=== PATIENT | female | born 1980 | race Caucasian/White ===

== ENCOUNTER 2018-06-03 08:24 | Day surgery (SDC) | payer BC, SELFPAY ==
[2018-06-03 08:51] LABS: Internal QC Validated? YES +Cl - CLEAR BKGD; Pregnancy, Urine Negative Negative
[2018-06-03 09:04] VITALS: BP 120/74; PULSE 78; RESP 18; TEMP 37; O2SAT 97; BMI 27.3
[2018-06-03 09:04] LABS: Hematocrit 42.7 % (37-47); Hemoglobin 14.2 g/dl (12.0-15.0); Mean Corp Hgb Conc 33.3 g/gl (32-36); Mean Corpuscular Hgb 30.2 pg (27.0-32.0); Mean Corpuscular Volume 90.9 fL (81-99); Mean Platelet Vol. 11.1 fl (6.2-12.0); Platelet Count 220 K/mm3 (150-450); RBC Distribution Width CV 12.9 % (11.6-14.6); RBC Distribution Width SD 42.6 fl (35.1-43.9); White Blood Count 11.8 K/mm3 (4.4-11.0)
[2018-06-03 09:09] LABS: Scan Indicated on CBC? Y/N NO
[2018-06-03] MEDS: Gabapentin 600 MG Tablet PO (09:15)
[2018-06-03] MEDS: Celecoxib 200 MG Capsule 400 MG PO (09:15)
[2018-06-03] MEDS: Phenazopyridine 95 MG Tablet 190 MG PO (09:15)
[2018-06-03] MEDS: Ondansetron 8 MG Tablet 16 MG PO (09:15)
[2018-06-03] MEDS: Acetaminophen 500 MG Tablet 1000 MG PO (09:15)
--- NOTE | 2018-06-03 10:55 | HYST_PTH ---
PATIENT: ODIN SOW LOC: [facility] [place] U#:[id number] AGE/SX: 38/F ROOM: RE06/03/[address]: Dr. Ai Rocha MD : 1980 BED: DIS: 06/03/2018 SPEC #: [id number] RECD: 06/03/18 12:47 STATUS: HARINDER LOKESH #: [id number] MESFIN: 06/03/18 10:[address]: Ai Rocha DEPT: SURGICAL PATHOLOGY RECD BY: Bal Zuñiga ENTERED: 06/03/18 14:55 SP TYPE: HYSTERECT OTHR DR: No Primary Care Phys Tissues: Uterus, NOS Procedures: Surgery Specimen Level V HEADER OPERATION: Hysterectomy, laparoscopic assisted vaginal, right salpingectomy PRE-OP DIAGNOSIS: Abnormal uterine bleeding TISSUE SUBMITTED: Uterus, right fallopian tube MICROSCOPIC DIAGNOSIS Uterus and right fallopian tube, vaginal hysterectomy and right salpingectomy: Cervix ? chronic cystic cervicitis, squamous metaplasia and focal hyperkeratosis. Endometrium ? secretory endometrium. Myometrium ? superficial adenomyosis. Right fallopian tube - no pathologic diagnosis. SJ:ry 06/04/18 MICROSCOPIC DESCRIPTION Slides are reviewed. GROSS DESCRIPTION Received in fixative is one container labeled with the patient's name and designated uterus, right fallopian tube. The specimen consists of a hysterectomy specimen consisting of uterus with cervix and detached fallopian tube identified as right fallopian tube. The uterus with cervix weighs 121 gm and measures 9.5 x 7 x 5 cm. The serosal surface is beltran, glistening. The ectocervical mucosa is focally eroded. The external os is oval and patulous in contour. The endocervical canal measures 3 cm in length and the endocervical mucosa is beltran, glistening and unremarkable. Sections of the cervix reveal a few cysts filled with mucoid material. The triangular endometrial cavity measures 5 cm in length and up to 3 cm in width. At the level of internal os, a small cyst is noted filled with chocolate-brown material. The endometrium is belrtan, glistening without any mass lesion and measures up to 0.2 cm in thickness. Sections of the uterine wall do not reveal any mass lesion and it measures up to 2.5 cm in thickness. The detached fallopian tube measures 2.5 cm in length and up to 0.5 cm in diameter. The fimbrial end is identified. Sections reveal unremarkable cut surfaces. Tower Cleaner sections are submitted in eight cassettes as follows: 1 - anterior cervix, 2 - posterior cervix, 3 & 4 - anterior uterine wall, 5 & 6 - posterior uterine wall, 7 ? the cystic area at the internal os, 8 ? right fallopian tube, entirely submitted. / ROGELIO:ry 06/03/18 TC:5 CPT: 95288
[2018-06-03] MEDS: Bupivacaine Mpf 0.5% 30 ML VIAL (11:08)
--- NOTE | 2018-06-03 12:15 | OP.PCM_ITS ---
Report of Operation Date of Procedure: 06/03/18 Pre-Operative Diagnosis: pelvic pain, dysmenorrhea, adenomyosis Post-Operative Diagnosis: same Surgery/Procedure Performed:: LAVH, right salpingectomy Description of Surgical Findings:: left tube and ovary surgically absent, normal cervix and vagina, boggy uterus, normal right tube and ovary, normal peritoneal cavity, normal liver, normal bladder hydraulic plumber helper: Makayla Montano Type of Anesthesia:: General Anesthesiologist: Anne Chou Special Medications: none Specimen's removed: uterus, right tube Drains: bowie Estimated Blood Loss (mL): 75cc Fluids Replaced: 1400ccLR Description of Procedure: The patient was taken to the operating room where she was prepped and draped in the dorsal lithotomy position. Her arms were tucked to the side and padded and her legs were placed in the yellowfin stirrups. Care was taken to ensure that she was placed in a neurologically safe and neutral position. A weighted speculum was placed in the vagina and the anterior lip of the cervix was grasped with a single-tooth tenaculum. The cervix sounded to 9 centimeters. The Yareli uterine manipulator was placed and the balloon inflated. A Bowie catheter was placed to straight drain. Attention was turned to the abdominal portion of the case. Before skin incisions were made they were infiltrated with 0.5% Marcaine solution for local anesthetic. A 5 mm intraumbilical incision was made and while tenting the anterior abdominal wall up with towel clamps a 5 mm blade less trocar and sleeve were advanced directly into the peritoneal cavity. Peritoneal placement was confirmed with the laparoscope the pneumoperitoneum was created, and the underlying abdominal contents were intact. The patient was placed in Trendelenburg and the above findings were noted. Right and left lateral 5 mm trochars were placed under direct visualization without difficulty. The antimesenteric portion of the tube was clamped sealed and transected serially on the right side was with the LigaSure device. The round ligaments were clamped sealed and transected and a window was made in the peritoneum. The utero-ovarian ligament on the right side was clamped sealed and transected with the LigaSure device and the pedicles were hemostatic. The left tube and ovary were surgically absent. The bladder flap was dissected down with the LigaSure device and blunt dissection and the uterine arteries were then skeletonized. The uterine arteries were clamped sealed and transected on both sides with the LigaSure device. Then along the cardinal ligament uterine arteries adjacent to the cervix were clamped sealed and transected with the LigaSure device to move them away from the vaginal cuff angle. At this point the pedicles were all examined and found to be hemostatic. The bladder flap was rechecked and found to be adequately down. At this point the pedicles were hemostatic from above and attention was turned to the vaginal portion of the case again. 1% Xylocaine with dilute epinephrine solution was used to infiltrate the vaginal epithelium anteriorly from 3 to 9:00 across the cervix. An incision was made with the scalpel from 3 to 9:00 across the anterior vaginal epithelium. The vaginal epithelium was dissected back with blunt and sharp dissection in the anterior colpotomy incision made with the Metzenbaum scissors. Intraperitoneal entry was confirmed and a right angle tract retractor was placed. The vaginal epithelium along the cervix at 3 and 9: 00 was clamped, transected and suture ligated. A second pedicle containing the anterior visceral peritoneum of the uterus was secured with Scott clamp, transected and suture ligated. Hemostasis was noted. The uterus was then brought out through the anterior colpotomy incision. The uterosacral ligaments and posterior vaginal cuff were clamped across with curved Scott clamps that met in the midline. The cervix and uterus were amputated from the vagina. The pedicles were oversewn with an 0 Vicryl suture and the sites were hemostatic. The vaginal cuff angles were secured with 0 Vicryl sutures. The remainder the vagina was then closed horizontally with interrupted 0 Vicryl sutures. The cuff was hemostatic vaginally. The Bowie catheter was removed and a cystoscopy was performed. The bladder appeared normal and was intact. Both ureteral orifices were noted and both ureteral jets were seen. The cystoscope was removed and the Bowie catheter was placed back to straight drain. A sponge stick was placed in the vagina to help place traction against the vaginal cuff and the pneumoperitoneum was re-created. The pedicles were all reexamined and found to be hemostatic. The right ovary appeared normal. The right and left lateral ports were taken out and the sites were hemostatic. The pneumoperitoneum was released and even under low pressure there was no bleeding of any of the pedicles are vaginal cuff. The umbilical port was removed. The umbilical skin incisions were closed with Monocryl suture and skin glue by Dr. Wolf. The vaginal instruments were removed by me and a vaginal sweep was completed by me. The surgery was performed by me with assistance other than the portions dictated as above. There were no qualified residents available for this procedure. All sponge lap and needle counts were correct and the patient was transferred to the recovery room in stable condition. Grafts/Implants Used: none - Complications none - Admit VTE Documentation VTE Present on Admission: No VTE Mechan Device Prophylaxis: SCD's VTE Pharm Prophylaxis ordered?: No Reason prophylaxis not ordered:: Procedure Not Indicated
--- NOTE | 2018-06-03 12:20 | PCM.DC.VHY ---
Discharge Diet: No Restrictions Discharge Activity: Return to Normal Activity, May Not Drive - while taking narcotic pain medications., May Shower May resume sexual activity in: 6-8 weeks Call your doctor if your incision/area has: Continuous Slow Oozing, Sudden Increased Bleeding, Increased Pain/ Swelling, Increased Redness, Foul Smelling Discharge Call your doctor if you observe: Fever of 101 or Higher, Inability to urinate, Inability to have a bowel movement, Using more than one pad per hour Allergies/Adverse Reactions: Allergies No Known Allergies Allergy (Verified 05/27/18 08:51) Medications to take at Discharge Acetaminophen/Diphenhydramine [Tylenol Pm Ex-Strength Caplet] 1 each PO QHS PRN PRN 06/03/18 Aspirin/Acetaminophen/Caffeine [Excedrin Migraine Caplet] 1 each PO PRN PRN 06/03/18 Primary Care Physician: Care Physician,No Primary [Primary Care Provider] - Test Results: Test results from this visit will be discussed in further detail at your follow-up appointment, if applicable. Please Follow Up With: Ai Rocha MD - [phone] When: 1-2 and 6 weeks or as needed
--- NOTE | 2018-06-03 12:23 | PCM.DC.VHY ---
Discharge Diet: No Restrictions Discharge Activity: Return to Normal Activity, May Not Drive - while taking narcotic pain medications., May Shower, May Take a Tub Bath - in 4-6 weeks May shower in (days): 1 May resume sexual activity in: 6-8 weeks Call your doctor if your incision/area has: Continuous Slow Oozing, Sudden Increased Bleeding, Increased Pain/ Swelling, Increased Redness, Foul Smelling Discharge Call your doctor if you observe: Fever of 101 or Higher, Inability to urinate, Inability to have a bowel movement, Using more than one pad per hour Cleanse incision/area with: Soap & Water, - - your incisions have skin glue, it can get wet Allergies/Adverse Reactions: Allergies No Known Allergies Allergy (Verified 05/27/18 08:51) Medications to take at Discharge Acetaminophen/Diphenhydramine [Tylenol Pm Ex-Strength Caplet] 1 each PO QHS PRN PRN 06/03/18 Aspirin/Acetaminophen/Caffeine [Excedrin Migraine Caplet] 1 each PO PRN PRN 06/03/18 Primary Care Physician: Care Physician,No Primary [Primary Care Provider] - Test Results: Test results from this visit will be discussed in further detail at your follow-up appointment, if applicable. Please Follow Up With: Ai Rocha MD - [phone] When: 1-2 and 6 weeks or as needed
[2018-06-03 12:28] VITALS: BP 114/69; BP 120/74; PULSE 93; RESP 18; TEMP 36.4; O2SAT 94
[2018-06-03 12:45] VITALS: BP 106/63; BP 120/74; PULSE 67; RESP 18; O2SAT 97
[2018-06-03 13:00] VITALS: BP 102/56; BP 120/74; PULSE 72; RESP 18; TEMP 36.2; O2SAT 96
[2018-06-03 15:16] LABS: Hematocrit 41.1 % (37-47); Hemoglobin 13.6 g/dl (12.0-15.0); Mean Corp Hgb Conc 33.1 g/gl (32-36); Mean Corpuscular Hgb 30.2 pg (27.0-32.0); Mean Corpuscular Volume 91.1 fL (81-99); Mean Platelet Vol. 11.2 fl (6.2-12.0); Platelet Count 177 K/mm3 (150-450); RBC Distribution Width CV 12.9 % (11.6-14.6); Red Blood Count 4.51 M/mm3 (4.2-5.4); White Blood Count 18.3 K/mm3 (4.4-11.0)
[2018-06-03 15:17] LABS: Scan Indicated on CBC? Y/N NO
[2018-06-03] MEDS: Lactated Ringers 1,000 ML 100 ML IV (15:37)
--- NOTE | 2018-06-03 15:43 | PCM.PN.OB ---
Subjective: pain well controlled, no nN/V. Waiting to void. WOuld like to be d/marily home. - Physical Exam General: Alert, Cooperative, No apparent distress Abdomen: Soft, Non-Distended, Tender - appropriately, - - incicisions clean, dry and intact Vital Signs Temp Pulse Resp BP Pulse Ox 97.1 F L 72 18 102/56 L 96 06/03/18 13:00 06/03/18 13:00 06/03/18 13:00 06/03/18 13:00 06/03/18 13:00 Oxygen Delivery Method Room Air Weight: 84 kg Body Mass Index (BMI) 27.3 Intake and Output for Last 24 Hours 06/01/18 06/02/18 06/03/18 23:59 23:59 23:59 Intake Total 1800 / 1800 Output Total 530 / 530 Balance 1270 / 1270 Laboratory Tests Past 24 Hrs 06/03/18 06/03/18 06/03/18 08:40 08:54 08:54 WBC 11.8 H RBC 4.70 Hgb 14.2 Hct 42.7 MCV 90.9 MCH 30.2 MCHC 33.3 RDW 12.9 RDW Differential 42.6 Plt Count 220 MPV 11.1 Urine Test Negative Blood Type O POSITIVE Antibody Screen NEGATIVE 06/03/18 15:08 WBC 18.3 H RBC 4.51 Hgb 13.6 Hct 41.1 MCV 91.1 MCH 30.2 MCHC 33.1 RDW 12.9 RDW Differential 43.0 Plt Count 177 MPV 11.2 Urine Test Blood Type Antibody Screen Medical Necessity - Tobacco Use Smoking Status: Current every day smoker Assessment/Plan POD#0 Doing well ready for d/c if can void has home rxs
[2018-06-03 16:47] VITALS: BP 112/64; BP 120/74; PULSE 72; RESP 18; TEMP 36.3; O2SAT 97
== END 2018-06-03 16:57 | disposition home or self-care (01) ==
LOC: SDC 08:30 → AC 08:32
PROVIDERS: Visit Provider Obstetrics & Gynecology
PROC: 0UT9FZZ Resection of Uterus, Via Natural or Artificial Opening With Percutaneous Endoscopic Assistance (ICD-10-PCS; CPT 58552; principal; 2018-06-03 10:30)
DX: N80.0 Endometriosis of uterus (principal); N88.0 Leukoplakia of cervix uteri; N72 Inflammatory disease of cervix uteri; F17.200 Nicotine dependence, unspecified, uncomplicated
CPT/HCPCS: 58552; 81025; 85027; 86850; 86900; 88307; J7120; J2405

== ENCOUNTER → 2021-01-22 14:02 | Outpatient (CLI) | payer BC, SELFPAY ==
[2021-01-22 15:13] LABS: Absolute Lymphocyte Count 3.89 X10^3/uL (0.83-4.51); Basophil# 0.07 X10^3/uL; Basophil% 0.6 % (0-1); Eosinophils% 4.4 % (0-5); Hematocrit 44.1 % (37-47); Hemoglobin 14.3 g/dL (12.0-15.0); Lymphocyte # 3.89 X10^3/ul (4.0); Lymphocyte % 34.5 % (19-41); Mean Corp Hgb Conc 32.4 g/dL (32-36); Mean Corpuscular Hgb 29.9 pg (27.0-32.0); Mean Corpuscular Volume 92.1 fL (81-99); Mean Platelet Vol. 11.7 fl (6.2-12.0); Monocyte# 0.77 X10^3/uL; Monocyte% 6.8 % (0-10); NRBC Flagged by Analyzer 0 % (0-5); Neutrophil % 53.4 % (47-70); Platelet Count 263 K/mm3 (150-450); RBC Distribution Width CV 12.3 % (11.6-14.6); RBC Distribution Width SD 41.8 fl (35.1-43.9); Red Blood Count 4.79 M/mm3 (4.2-5.4); White Blood Count 11.3 K/mm3 (4.4-11.0)
[2021-01-22 15:38] LABS: ALB/GLOB Ratio 1.2 RATIO (0.9-2.4); AST(SGOT) 16 U/L (15-37); Alanine Aminotransfer ALT/SGPT 27 U/L (13-56); Alkaline Phosphatase 104 U/L (45-117); Anion Gap 5 (5-15); BUN 9 mg/dL (7-18); BUN/Creat Ratio 11.1 RATIO (10-20); CRP < 2.90 mg/L (0.0-3.0); Calcium,Total 9.1 mg/dL (8.5-10.1); Chloride 106 mmol/L (98-107); Creatinine, Serum 0.81 mg/dL (0.55-1.02); EST Glomerular Filtration Rate 82 mL/min (>60); Est Glom Filt Rate - Afr Amer 99 mL/min (>60); Globulin 3.2 g/dL (2.2-4.2); Glucose 86 mg/dL (74-106); Potassium 3.8 mmol/L (3.5-5.1); Protein, Total 7.2 g/dL (6.4-8.2); Rheumatoid Factor < 10.0 IU/mL (<15); Sodium Level 140 mmol/L (136-145)
[2021-01-22 15:43] LABS: Erythrocyte Sedimentation Rate 7 mm/hr (0-30)
[2021-01-22 16:10] LABS: Hepatitis B Surface Antibody Reactive; Hepatitis B Surface Antigen Non-Reactive (Nonreactive); Hepatitis C Antibody Non-Reactive (Nonreactive)
[2021-01-25 05:12] LABS: CCP IgG Antibodies 3 units (0-19)
[2021-01-25 05:18] LABS: ANTINUCLEAR ANTIBODIES DIRECT Positive (Negative)
== END ==
PROVIDERS: PCP Family Medicine; Referring Provider Internal Medicine Rheumatology; Visit Provider Internal Medicine Rheumatology
DX: M06.4 Inflammatory polyarthropathy (principal); G43.909 Migraine, unspecified, not intractable, without status migrainosus; M79.7 Fibromyalgia
CPT/HCPCS: 36415; 80053; 85025; 85652; 86038; 86140; 86200; 86431; 86706; 86803; 87340

== ENCOUNTER → 2021-02-06 10:00 | Outpatient (CLI) | payer BC, SELFPAY ==
[2021-02-06 11:13] LABS: EXAGEN MAILED SPECIMEN
[2021-02-06 12:45] LABS: Color, Urine Yellow (Yellow); Glucose, Dipstick Normal (Normal); Ketone-Dipstick Negative (Negative); Leukocyte Esterase-Dipstick Negative /ul (Negative); Nitrite-Dipstick Negative (Negative); Occult Blood-Urine 25 /ul (Negative); Protein-Dipstick Negative (Negative); Urine Bilirubin Dipstick Negative (Negative); Urine Clarity Clear (Clear); Urine Urobilinogen Normal (Normal)
[2021-02-06 13:01] LABS: Protein, Urine (Random) 9.1 mg/dL (<11.9); Protein:Creat Ratio 119 mg/g CRE (0-200)
== END ==
PROVIDERS: PCP Family Medicine; Referring Provider Internal Medicine Rheumatology; Visit Provider Internal Medicine Rheumatology
DX: M06.4 Inflammatory polyarthropathy (principal); M79.7 Fibromyalgia; R76.8 Other specified abnormal immunological findings in serum; G43.909 Migraine, unspecified, not intractable, without status migrainosus
CPT/HCPCS: 81002; 82570; 84156

== ENCOUNTER → 2023-04-20 | Outpatient (CLI) | payer BC, SELFPAY ==
--- NOTE | 2023-04-20 | FLU_PTH ---
PATIENT: ODIN SOW LOC: [facility] U#:[id number] AGE/SX: 43/F ROOM: RE04/20/[address]: Dr. Monika Navarro MD : 1980 BED: DIS: 04/20/2023 SPEC #: [id number] RECD: 04/20/23 14:52 STATUS: HARINDER RE #: [id number] MESFIN: 04/20/23 00:[address]: Monika Navarro DEPT: CYTOLOGY RECD BY: Liliya Morel ENTERED: 04/21/23 09:37 SP TYPE: Fluid OTHR DR: Dr. Vinnie Alaniz MD Tissues: A - Thyroid gland, NOS B - Thyroid gland, NOS Procedures: Special Stain Group II Surgery Specimen Level IV Cytospin Fluid Cytology Other HEADER OPERATION: Left mid upper thyroid fine needle aspiration PRE-OP DIAGNOSIS: Abnormal ultrasound TISSUE SUBMITTED: A ? FNA left mid upper thyroid fluid, B - FNA left mid upper thyroid x8 slides DIAGNOSIS CYTOLOGY A. Fine needle aspiration, left mid upper thyroid nodule fluid (cytospin and cell block): Benign, consistent with benign follicular nodule ([place] Category II). See comment. B. Fine needle aspiration, left mid upper thyroid nodule (smears): Benign, consistent with benign follicular/colloid nodule ([place] Category II). See comment. AM:ry 04/22/2023 COMMENT A & B. The [place] System for thyroid diagnostic categorization was used in the evaluation of this case. The specimen is adequate for evaluation. CYTOLOGY STUDY Slides are reviewed. CYTOLOGY GROSS A - Received is 30 ml of brown cloudy fluid labeled with the patient's name and and designated per the requisition as left mid upper thyroid. Submitted for cytology preparation including cell block. B - Received are eight smears labeled with the patient's name and designated per the requisition as left mid upper thyroid. Submitted for staining. / ry 04/21/2023 TC:5 CPT: 56690 x2, 23314
== END | disposition home or self-care (01) ==
LOC: LABSPEC 15:03
PROVIDERS: PCP Family Medicine; Referring Provider Surgery; Visit Provider Surgery
DX: R93.9 Diagnostic imaging inconclusive due to excess body fat of patient (principal)
CPT/HCPCS: 88108; 88161; 88305; 88313